=== PATIENT | male | born 1940 | race Caucasian/White ===

== ENCOUNTER → 2024-01-16 15:41 | Outpatient (REF) | payer OTHER, SELFPAY ==
[2024-01-16 17:45] LABS: NT-proBNP 1280 pg/ml
== END ==
LOC: REG 15:41
PROVIDERS: ATTENDING PHYSICIAN Internal Medicine Cardiovascular Disease; FAMILY PHYSICIAN Internal Medicine
DX: I48.21 Permanent atrial fibrillation (principal); R06.09 Other forms of dyspnea
CPT/HCPCS: 36415; 83880

== ENCOUNTER → 2024-02-01 11:54 | Outpatient (REF) | payer OTHER, SELFPAY ==
[2024-02-01 13:43] LABS: Blood Urea Nitrogen 24 mg/dl (9-20); Calcium 9.6 mg/dl (8.4-10.2); Carbon Dioxide 27 mmol/L (22-30); Chloride 102 mmol/L (98-107); Glucose 97 mg/dl (70-99); Potassium 5.3 mmol/L (3.5-5.1); Sodium 138 mmol/L (135-145); eGFR > 60.00
== END ==
LOC: REG 11:54
PROVIDERS: ATTENDING PHYSICIAN Internal Medicine Cardiovascular Disease; FAMILY PHYSICIAN Internal Medicine
DX: I44.0 Atrioventricular block, first degree (principal); I10 Essential (primary) hypertension; I70.0 Atherosclerosis of aorta; E78.00 Pure hypercholesterolemia, unspecified
CPT/HCPCS: 36415; 80048

== ENCOUNTER → 2024-02-13 07:40 | Outpatient (REF) | payer OTHER, SELFPAY | LOC: DHCBC/DCA 07:40 | PROVIDERS: ATTENDING PHYSICIAN Internal Medicine Cardiovascular Disease; FAMILY PHYSICIAN Internal Medicine | DX: I48.21 Permanent atrial fibrillation (principal); R06.09 Other forms of dyspnea; E78.00 Pure hypercholesterolemia, unspecified | CPT/HCPCS: 78452; 93017; A9500; J2785 ==

== ENCOUNTER → 2024-02-27 15:06 | Outpatient (REF) | payer OTHER, SELFPAY | LOC: RCS 15:06 | PROVIDERS: ATTENDING PHYSICIAN Internal Medicine Cardiovascular Disease; FAMILY PHYSICIAN Internal Medicine | DX: I48.21 Permanent atrial fibrillation (principal); R06.09 Other forms of dyspnea; E78.00 Pure hypercholesterolemia, unspecified | CPT/HCPCS: 93306 ==

== ENCOUNTER → 2024-04-11 09:17 | Outpatient (REF) | payer OTHER, SELFPAY ==
[2024-04-11 10:14] LABS: Blood Urea Nitrogen 15 mg/dl (9-20); Calcium 9.5 mg/dl (8.4-10.2); Carbon Dioxide 29 mmol/L (22-30); Chloride 103 mmol/L (98-107); Glucose 105 mg/dl (70-99); Potassium 4.7 mmol/L (3.5-5.1); Sodium 140 mmol/L (135-145); eGFR > 60.00
[2024-04-11 10:22] LABS: NT-proBNP 1420 pg/ml
== END ==
LOC: REG 09:17
PROVIDERS: ATTENDING PHYSICIAN Internal Medicine Cardiovascular Disease; FAMILY PHYSICIAN Internal Medicine
DX: I48.0 Paroxysmal atrial fibrillation (principal)
CPT/HCPCS: 36415; 80048; 83880

== ENCOUNTER → 2024-04-27 13:10 | Outpatient (REF) | payer OTHER, SELFPAY ==
[2024-04-27 14:45] LABS: % Basophils 0.9 % (0-2); % Eosinophils 2.2 % (0-6); % Immature Granulocytes 0.2 % (0-0.5); % Lymphocytes 22.9 % (20.5-51.1); % Neutrophils 60.8 % (42.2-75.2); Absolute Eosinophils 0.1 10^3/uL (0-0.7); Absolute Monocytes 0.6 10^3/uL (0.1-0.6); Absolute Neutrophils 2.8 10^3/uL (1.4-6.5); Hematocrit 38.6 % (39.0-52.0); Mean Corp Hgb Conc. 33.7 g/dL (33.0-37.0); Mean Corpuscular Hgb 30.8 pg (27.0-31.0); Mean Corpuscular Volume 91.5 fL (80.0-94.0); Mean Platelet Volume 9.6 fL (7.4-10.4); Nucleated Red Blood Cells % 0 % (-); Platelet Count 145 10^3/uL (130-400); Red Blood Cell Count 4.22 10^6/uL (4.70-6.10); Red Cell Dist. Width 13.7 % (11.5-14.5); White Blood Cell Count 4.6 10^3/uL (4.8-10.8)
[2024-04-27 15:23] LABS: ALT (SGPT) 22 U/L (0-50); AST (SGOT) 35 U/L (17-59); Albumin 4.5 g/dl (3.5-5.0); Alkaline Phosphatase 71 U/L (38-126); Blood Urea Nitrogen 22 mg/dl (9-20); Calcium 9.7 mg/dl (8.4-10.2); Carbon Dioxide 29 mmol/L (22-30); Chloride 103 mmol/L (98-107); Glucose 92 mg/dl (70-99); Potassium 5.2 mmol/L (3.5-5.1); Sodium 138 mmol/L (135-145); Total Bilirubin 1.3 mg/dl (0.2-1.3); Total Protein 7.4 g/dl (6.3-8.2); eGFR > 60.00
[2024-04-30 14:39] LABS: Lyme Antibody Screen, EIA Negative (Negative)
[2024-05-02 14:50] LABS: Ehrlichia chaffeensis IgG Ab <1:64 (<1:64); Ehrlichia chaffeensis IgM Ab < 1:16 (< 1:16)
== END ==
LOC: REG 13:10
PROVIDERS: ATTENDING PHYSICIAN Internal Medicine; FAMILY PHYSICIAN Internal Medicine
DX: Z11.9 Encounter for screening for infectious and parasitic diseases, unspecified (principal); W57.XXXA Bitten or stung by nonvenomous insect and other nonvenomous arthropods, initial encounter
CPT/HCPCS: 36415; 80053; 85025; 86618; 86666

== ENCOUNTER 2024-05-19 16:51 | Emergency (ER) | payer OTHER, SELFPAY ==
[2024-05-19 16:53] VITALS: BP 120/80
[2024-05-19 18:48] VITALS: BMI 27.6
[2024-05-19 18:52] VITALS: BP 112/77
--- NOTE | 2024-05-19 20:00 | ED.GENMED ---
History of Present Illness
<Ester Kyle PA-C - Last Filed: 05/23/24 08:18>
General
Chief Complaint: Skin Surface Trauma
Source: patient
Exam Limitations: none
Time Seen by Provider: 05/19/24 18:37
Nursing documentation reviewed up to this point in time: agreed with
History of Present Illness
History of Present Illness:
pt is a 83 y/o M
afib on xarelto
here with L sided chest wall pain after fall mechanical this afternoon, tripped up the steps of a house he was looking into buying. he landed on his left leg and has lacerations to the lower leg and also hurt his right 5th finger, and has L sided
rib pain. he was able to get up after being helped up
he did hit his head but denies headache, neck pain
pt was mostly left sided rib pain with moving but does not feel sob
no abdomianl pain
no hematuria
pt has abrasion to left lower leg skin tear and has h/o PVD and poor healign an dis concerned that he will not heal
he has a dressing on his lower leg from a chronic ulceration treated by his want ad receiver just a few days ago
tetanus outdated
Past History
<Ester Kyle PA-C - Last Filed: 05/23/24 08:18>
Past History
ED Past Medical History: Arrthythmia (afib), HTN and Other (BPH, PVD)
ED Past Surgical History: None
Patient has exhibited threatening behavior?: No
Social History
Tobacco: Non-smoker
Employment: Retired
Review of Systems
<Ester Kyle PA-C - Last Filed: 05/23/24 08:18>
Review of Systems
Allergies reviewed?: Yes
All Other Systems: Not applicable
Phy Exam
<Ester Kyle PA-C - Last Filed: 05/23/24 08:18>
Physical Exam
Physical Exam:
GENERAL: Alert , in no apparent distress
HEAD: NC
small jm left druze region, nontender
NECK: no midline tenderness, active ROM intact, no paraspinal muscle tenderness;
EYE: pupils equal and reactive, EOMs intact.
ENT: o/p clr, mmm. no hemotympanum
CARDIAC: Regular rate and rhythm, no edema
LUNGS: Clear breath sounds bilaterally, no acute respiratory distress, no wheezes/rales/rhonchi
left rib tendreness along #6 left midclavicular line
no bruising
normal breathing, no splinting
ABDOMEN: Soft, without focal tenderness, no r/g, no cvat
no LUQ tenderness
NEUROLOGICAL: Alert and oriented, no focal neuro deficits, CN intact, 5/5 strength, sensation intact
SKIN: Warm and dry, superifical skin tears x 2 approx 3 cm and 2 cm to left anterior lower leg
PVD skin changes
dressing to the L lower leg
MUSCULOSKELETAL: mild edema B/L le
normal ROM of legs/hips/knees
painful limitged ROM of the righ t5th finger, some flexion at PIP joint, cannot quite fully extend
otehrwise arms normaal
PSYCH: Normal and appropriate interaction.
Course
<Ester Kyle PA-C - Last Filed: 05/23/24 08:18>
Orders/Labs/Results
Orders:
Orders
05/19/24 17:05
Finger(s)/Thumb 2 View Rt [CR Finger(s)/thumb Min 2 Vw Rt] Urgent
Comment:
Reason For Exam: swelling and pain
Indicate Which Finger:: Thumb
Ribs, Left 3 View W/PA Chest CR [CR Ribs-left 3 Vw W/pa Chest] Urgent
Comment:
Reason For Exam: midsternal and left chest pain after a fall
08/24/24 17:06
EKG [Electrocardiogram (*1)] Urgent
Reason for Study: Chest Pain
05/19/24 17:07
EKG- Treatment ONCE
05/19/24 20:03
CT Cervical Spine W/o Iv Contr Urgent
Comment:
Reason For Exam: fall
CT Chest/abd/pel W Iv Cont Urgent
Comment:
Reason For Exam: fall L sided chest pain
CT Head W/o Iv Contrast Urgent
Comment:
Reason For Exam: fall on xarelto
Cardiac Monitoring- Treatment ONCE
05/19/24 20:04
Acetaminophen [Tylenol] 650 mg PO NOW STA
Tetanus/Diphth/Acelpertussis [Adacel] 0.5 ml IM .ONCE ONE
05/19/24 20:17
Complete Blood Count/With Diff Urgent
Comprehensive Metabolic Panel Urgent
PTT Urgent
Prothrombin Time Urgent
Troponin I Urgent
Abnormal Lab Results
05/19/24
20:17
RBC 4.33 L 10^6/uL
(4.70-6.10)
MCH 31.6 H pg
(27.0-31.0)
Plt Count 121 L 10^3/uL
(130-400)
Absolute Lymphs (auto) 0.9 L 10^3/uL
(1.2-3.4)
Lymphocytes % 17.4 L %
(20.5-51.1)
PT 19.4 H Sec
(11.4-14.6)
APTT 38.2 H Sec
(23.4-35.0)
Total Bilirubin 1.4 H mg/dl
(0.2-1.3)
05/19/24 20:17
05/19/24 20:17
Vital Signs
Initial and Last Documented VS:
Initial Vital Signs
Temp Pulse Resp BP Pulse Ox
98.4 F 72 18 120/80 99
05/19/24 16:53 05/19/24 16:53 05/19/24 16:53 05/19/24 16:53 05/19/24 16:53
Last Documented Vital Signs
Temp Pulse Resp BP Pulse Ox
98.4 F 86 16 111/98 99
05/19/24 16:53 05/19/24 21:54 05/19/24 21:54 05/19/24 21:54 05/19/24 21:54
<Eleanor Howard MD - Last Filed: 05/19/24 20:07>
Orders/Labs/Results
Orders:
Orders
05/19/24 17:05
Finger(s)/Thumb 2 View Rt [CR Finger(s)/thumb Min 2 Vw Rt] Urgent
Comment:
Reason For Exam: swelling and pain
Indicate Which Finger:: Thumb
Ribs, Left 3 View W/PA Chest CR [CR Ribs-left 3 Vw W/pa Chest] Urgent
Comment:
Reason For Exam: midsternal and left chest pain after a fall
05/19/24 17:06
EKG [Electrocardiogram (*1)] Urgent
Reason for Study: Chest Pain
05/19/24 17:07
EKG- Treatment ONCE
05/19/24 20:03
CT Cervical Spine W/o Iv Contr Urgent
Comment:
Reason For Exam: fall
CT Chest/abd/pel W Iv Cont Urgent
Comment:
Reason For Exam: fall L sided chest pain
CT Head W/o Iv Contrast Urgent
Comment:
Reason For Exam: fall on xarelto
Cardiac Monitoring- Treatment ONCE
05/19/24 20:04
Acetaminophen [Tylenol] 650 mg PO NOW STA
Tetanus/Diphth/Acelpertussis [Adacel] 0.5 ml IM .ONCE ONE
05/19/24 20:17
Complete Blood Count/With Diff Urgent
Comprehensive Metabolic Panel Urgent
PTT Urgent
Prothrombin Time Urgent
Troponin I Urgent
Abnormal Lab Results
05/19/24
20:17
RBC 4.33 L 10^6/uL
(4.70-6.10)
MCH 31.6 H pg
(27.0-31.0)
Plt Count 121 L 10^3/uL
(130-400)
Absolute Lymphs (auto) 0.9 L 10^3/uL
(1.2-3.4)
Lymphocytes % 17.4 L %
(20.5-51.1)
PT 19.4 H Sec
(11.4-14.6)
APTT 38.2 H Sec
(23.4-35.0)
Total Bilirubin 1.4 H mg/dl
(0.2-1.3)
05/19/24 20:17
05/19/24 20:17
Vital Signs
Initial and Last Documented VS:
Initial Vital Signs
Temp Pulse Resp BP Pulse Ox
98.4 F 72 18 120/80 99
05/19/24 16:53 05/19/24 16:53 05/19/24 16:53 05/19/24 16:53 05/19/24 16:53
Last Documented Vital Signs
Temp Pulse Resp BP Pulse Ox
98.4 F 86 16 111/98 99
05/19/24 16:53 05/19/24 21:54 05/19/24 21:54 05/19/24 21:54 05/19/24 21:54
[place];Ester Kyle PA-C - Last Filed: 05/23/24 08:18>
MDM/Problems Addressed
Differential Diagnosis Includes:
rib fx, hemothorax, ptx, splenic injury, head injyury, finger fracture, finger sprain
MDM/Problems Addressed:
83 y/o M
anticoagulated
mechanical trip and fall up the steps today
slight head strike, no LOC
mostly L rib pain and right pinky pain and some abrasions
intiially declining CT imaging but with his xarelto and age felkt it necessary to eval with trauma scans
pt seen by ed attending who agreed, pt did ultimately agree
head/neck ct some incidentals, no trauma
initially the rib series xray sohwed possbility of acute 6th and possibly age indermininate 5th rib fx
the CT does not show these - ip spoke with vision radiologist to discuss this who said that the images sent were thicker cuts that could miss subtle rib fx
will treat as if he has fx
incentive spoirometry
wound care performed on loewr leg
splinted left pinky which xray indep reviewed and neg for fx
possibly sprained ligament
f/u ortho
Incidentally the CT scan shows an aortic aneurysm, he does have an ascending aneurysm 5.1 cm and a descending thoracic aortic aneurysm measuring 4 cm. I discussed this with the radiologist as well. Patient has not been aware of these. He has no
symptoms. I discussed this with the ED attending who recommended that I ask the CT surgeon about follow-up which she said can be performed outpatient. Patient was given a copy of this report and understands
<Ester Kyle PA-C - Last Filed: 05/23/24 08:18>
*Critical Care Note
Total Time (30-74mins, 75-104mins- exclusive of procedures): Not Applicable
ED Attending Note
<Ester Kyle PA-C - Last Filed: 05/23/24 08:18>
-
Portions of this chart may have been created with voice recognition software.� Occasional wrong word or��sound alike� substitutions may have occurred due to the inherent limitations of voice recognition software.
<Eleanor Howard MD - Last Filed: 08/24/24 20:07>
ED Attending Note
Patient seen and examined by attending physician: Yes
I performed the substantive portion of visit, reviewed & personally made and approve the management plan that is documented in note by myself or LENORE.: Yes
ED Attending Note:
Patient is a 83-year-old male with history of atrial flutter on Xarelto presenting to the emergency department after a fall. Patient states that he tripped on 1 step. He landed on his chest. He is unsure if he hit his head. He is complaining of
finger pain and chest pain. He denies any numbness tingling. No weakness. He is mostly worried about the chest pain.
GENERAL: no acute distress
HEENT: atraumatic, extraocular muscles intact, no signs of entrapment, dentition intact, no other obvious trauma
NECK: no midline tenderness, normal range of motion, NEXUS criteria negative, no other obvious trauma
BACK: no midline tenderness, no other obvious trauma
CHEST: Left chest wall tender, no flail segment, no subcutaneous emphysema, no other obvious trauma
LUNGS: clear to auscultation bilaterally
CARDIOVASCULAR: regular rate and rhythm
ABDOMEN: soft, non-tender, no masses, no other obvious trauma
PELVIS: stable, no obvious injury
EXTREMITIES: moving all extremities, distal pulses intact, no other obvious trauma, scattered abrasions that are superficial to the lower extremity
NEUROLOGIC: awake, alert x 3, no focal deficits
83-year-old male with history of A-fib on Xarelto presenting to the emergency department after a fall. Exam does show chest wall tenderness and scattered abrasions to his lower extremity that bleeding is controlled. He did have x-rays of his ribs
with did show 2 rib fractures. After discussion with patient I did recommend obtaining CT scan of the head C-spine chest abdomen pelvis given his age and anticoagulation status. Patient is amenable. Will also obtain xrays of finger. dispo pending
per x-rays and CT scan.
Discharge Plan
Departure
Patient Disposition: Home (Routine Discharge)
Patient with high blood pressure during this ER visit?: No
Condition: Fair
Discharge Problem:
Fall, Skin tear, Rib fractures, Finger sprain
Instructions: Wound Care (DC), Finger Sprain (DC), Rib Fracture or Bruised Rib ED
Prescriptions:
No Action
cyanocobalamin (vitamin B-12) 1,000 MCG tablet
1,000 mcg PO DAILY
cholecalciferol (vitamin D3) 1,000 UNITS tablet
1,000 units PO DAILY
Xarelto 20 MG tablet
20 mg PO DAILY
Patient Comments:
02/02/19 ss; pt takes in the AM, not QPM.
potassium gluconate 99 MG tablet
99 mg PO QPM
zinc 10 MG tablet
10 mg PO DAILY
silodosin [Rapaflo] 8 MG capsule
8 mg PO .PM
valsartan 80 mg Tablet
80 mg PO DAILY
amoxicillin 500 mg Tablet
2,000 mg PO PRN PRN (Reason: dental appt)
oxycodone-acetaminophen 5-325 mg Tablet
1 tab PO PRN PRN (Reason: pain)
magnesium 200 mg Tablet
400 mg PO DAILY
Systane (propylene glycol) 0.4-0.3 % Drops
1 drp OPHTHALMIC (EYE) DAILY PRN (Reason: dry eye)
nebivolol 10 mg Tablet
10 mg PO DAILY
Referrals:
Jaun Shipley MD [Active] - Follow up in 1 week (ORTHO)
Benji Merida DO [Family Provider] -
Raghav Cramer MD [Active] - Follow up in 5-7 days (CT surgery)
[facility] [[facility]] - Follow up in 1 week
Activity Restrictions/Additional Instructions:
YOU MAY HAVE 2 RIB FRACTURES
THEY WERE NOT WELL VISUALIZED ON CT SCAN
NO DISPLACED RIB FRACTURES OR HEAD/NECK INJURIES
USE THE INCENTIVE SPIROMETER TO TAKE DEEP BREATHS TO AVOID PNEUMONIA EERY 2 HOURS WHILE AWAKE
TAKE TYLENOL NEEDED FOR PAIN
ICE OFF AND ON
FOLLOW UP WITH ORTHOPEDICS FOR YOUR FINGER, THERE WAS NO FRACTURE BUT YOU MAY HAVE A FINGER LIGMAENT SPRAIN
FOLLOW UP WITH THE HAND DOCTOR
RETURN FO [facility]ANY CONCERNS
CALL THE [facility] FOR HELP WITH YOUR WOUNDS
Interventions
Interventions:
*Risk Screen - Suicide Last Done: 05/19/24 18:52
*General Assessment Last Done: 05/19/24 18:49
*Neglect/Abuse Screening Last Done: 05/19/24 18:52
ED- Fall Risk Assessment Last Done: 05/19/24 22:04
*ED COVID-19 Vaccine History Last Done: 05/19/24 18:49
*Nursing Disposition Last Done: 05/19/24 22:04
ED-Skin Assessment Last Done: 05/19/24 18:49
Discharge Date and Time
Discharge Date/Time: 05/19/24 22:05
Print Language: NIUEAN
[2024-05-19] MEDS: ADACEL 0.5 ML IM (20:22)
[2024-05-19 20:24] LABS: % Basophils 0.6 % (0-2); % Eosinophils 0.6 % (0-6); % Immature Granulocytes 0.2 % (0-0.5); % Lymphocytes 17.4 % (20.5-51.1); % Monocytes 9.3 % (1.7-9.3); % Neutrophils 71.9 % (42.2-75.2); Absolute Lymphocytes 0.9 10^3/uL (1.2-3.4); Absolute Monocytes 0.5 10^3/uL (0.1-0.6); Absolute Neutrophils 3.9 10^3/uL (1.4-6.5); Hemoglobin 13.7 g/dL (13.0-18.0); Mean Corp Hgb Conc. 35.1 g/dL (33.0-37.0); Mean Corpuscular Hgb 31.6 pg (27.0-31.0); Mean Corpuscular Volume 90.1 fL (80.0-94.0); Mean Platelet Volume 8.7 fL (7.4-10.4); Nucleated Red Blood Cells % 0 % (-); Platelet Count 121 10^3/uL (130-400); Red Blood Cell Count 4.33 10^6/uL (4.70-6.10); Red Cell Dist. Width 13.9 % (11.5-14.5); White Blood Cell Count 5.4 10^3/uL (4.8-10.8)
[2024-05-19 20:35] LABS: INR 1.65; PT 19.4 Sec (11.4-14.6)
[2024-05-19 20:36] LABS: APTT 38.2 Sec (23.4-35.0)
[2024-05-19 20:45] LABS: ALT (SGPT) 27 U/L (0-50); AST (SGOT) 43 U/L (17-59); Albumin 4.7 g/dl (3.5-5.0); Alkaline Phosphatase 72 U/L (38-126); Blood Urea Nitrogen 17 mg/dl (9-20); Calcium 9.6 mg/dl (8.4-10.2); Carbon Dioxide 30 mmol/L (22-30); Chloride 102 mmol/L (98-107); Estimated Creatinine Clearance 71 ml/min; Glucose 94 mg/dl (70-99); Sodium 142 mmol/L (135-145); Total Bilirubin 1.4 mg/dl (0.2-1.3); eGFR > 60.00
[2024-05-19 20:50] LABS: Troponin I < 0.012 ng/ml
[2024-05-19 21:54] VITALS: BP 111/98
== END 2024-05-19 22:05 | disposition home or self-care (01) ==
LOC: EMR 16:51
PROVIDERS: Physician Assistant; EMERGENCY PHYSICIAN Student in an Organized Health Care Education/Training Program; FAMILY PHYSICIAN Internal Medicine
DX: S22.41XA Multiple fractures of ribs, right side, initial encounter for closed fracture (principal); S63.616A Unspecified sprain of right little finger, initial encounter; S81.812A Laceration without foreign body, left lower leg, initial encounter; W17.89XA Other fall from one level to another, initial encounter; Y93.89 Activity, other specified; Y92.89 Other specified places as the place of occurrence of the external cause; I10 Essential (primary) hypertension; I48.91 Unspecified atrial fibrillation; N40.0 Benign prostatic hyperplasia without lower urinary tract symptoms; I73.9 Peripheral vascular disease, unspecified; I48.92 Unspecified atrial flutter; I71.23 Aneurysm of the descending thoracic aorta, without rupture; Z79.01 Long term (current) use of anticoagulants; Z96.653 Presence of artificial knee joint, bilateral; Z85.89 Personal history of malignant neoplasm of other organs and systems; Z87.891 Personal history of nicotine dependence; Z88.8 Allergy status to other drugs, medicaments and biological substances
CPT/HCPCS: 99285; 70450; 71101; 71260; 72125; 73140; 74177; 80053; 84484; 85025; 85610; 85730; 90715; 93005; Q9967

== ENCOUNTER → 2024-06-25 08:33 | Outpatient (REF) | payer OTHER, SELFPAY ==
[2024-06-25 10:25] LABS: Blood Urea Nitrogen 15 mg/dl (9-20); Calcium 9.6 mg/dl (8.4-10.2); Carbon Dioxide 28 mmol/L (22-30); Chloride 102 mmol/L (98-107); Glucose 99 mg/dl (70-99); Potassium 4.3 mmol/L (3.5-5.1); Sodium 142 mmol/L (135-145); eGFR > 60.00
== END ==
LOC: REG 08:33
PROVIDERS: ATTENDING PHYSICIAN Family Medicine; FAMILY PHYSICIAN Internal Medicine
DX: I10 Essential (primary) hypertension (principal)
CPT/HCPCS: 36415; 80048

== ENCOUNTER → 2024-07-11 10:39 | Outpatient (REF) | payer OTHER, SELFPAY ==
[2024-07-11 11:56] LABS: Blood Urea Nitrogen 24 mg/dl (9-20); Calcium 9.5 mg/dl (8.4-10.2); Carbon Dioxide 31 mmol/L (22-30); Chloride 100 mmol/L (98-107); Glucose 100 mg/dl (70-99); HDL Cholesterol 69 mg/dl; LDL Cholesterol, Calculated 68 mg/dl; Potassium 4.9 mmol/L (3.5-5.1); Sodium 143 mmol/L (135-145); Total Cholesterol 150 mg/dl (50-199); Triglyceride 67 mg/dl (10-149); Very Low Density Lipoprotein 13 mg/dl (0-30); eGFR > 60.00
== END ==
LOC: REG 10:39
PROVIDERS: ATTENDING PHYSICIAN Internal Medicine Cardiovascular Disease; FAMILY PHYSICIAN Internal Medicine
DX: E78.00 Pure hypercholesterolemia, unspecified (principal)
CPT/HCPCS: 36415; 80048; 80061

== ENCOUNTER → 2025-01-21 09:09 | Outpatient (REF) | payer OTHER, SELFPAY ==
[2025-01-21 10:57] LABS: ALT (SGPT) 27 U/L (0-50); AST (SGOT) 39 U/L (17-59); Albumin 4.7 g/dl (3.5-5.0); Alkaline Phosphatase 55 U/L (38-126); Blood Urea Nitrogen 19 mg/dl (9-20); Calcium 9.4 mg/dl (8.4-10.2); Carbon Dioxide 28 mmol/L (22-30); Chloride 103 mmol/L (98-107); Glucose 110 mg/dl (70-99); HDL Cholesterol 77 mg/dl; LDL Cholesterol, Calculated 66 mg/dl; Potassium 5.6 mmol/L (3.5-5.1); Sodium 140 mmol/L (135-145); Total Bilirubin 1.4 mg/dl (0.2-1.3); Total Cholesterol 157 mg/dl (50-199); Total Protein 7.9 g/dl (6.3-8.2); Triglyceride 70 mg/dl (10-149); Very Low Density Lipoprotein 14 mg/dl (0-30); eGFR > 60.00
== END ==
LOC: REG 09:09
PROVIDERS: ATTENDING PHYSICIAN Internal Medicine Cardiovascular Disease; FAMILY PHYSICIAN Internal Medicine
DX: I10 Essential (primary) hypertension (principal); E78.00 Pure hypercholesterolemia, unspecified
CPT/HCPCS: 36415; 80053; 80061

== ENCOUNTER → 2025-01-28 07:39 | Outpatient (REF) | payer OTHER, SELFPAY | LOC: RAD 07:39 | PROVIDERS: ATTENDING PHYSICIAN Internal Medicine Cardiovascular Disease; FAMILY PHYSICIAN Internal Medicine | DX: I10 Essential (primary) hypertension (principal); R06.09 Other forms of dyspnea; I77.819 Aortic ectasia, unspecified site | CPT/HCPCS: 71275; Q9967 ==

== ENCOUNTER → 2025-02-15 10:44 | Outpatient (REF) | payer OTHER, SELFPAY ==
[2025-02-15 11:49] LABS: NT-proBNP 1200 pg/ml
[2025-02-15 12:27] LABS: Blood Urea Nitrogen 19 mg/dl (9-20); Calcium 9.3 mg/dl (8.4-10.2); Carbon Dioxide 28 mmol/L (22-30); Chloride 107 mmol/L (98-107); Glucose 105 mg/dl (70-99); Magnesium 2.2 mg/dl (1.6-2.3); Potassium 4.9 mmol/L (3.5-5.1); Sodium 142 mmol/L (135-145); eGFR > 60.00
== END ==
LOC: REG 10:44
PROVIDERS: ATTENDING PHYSICIAN Internal Medicine Cardiovascular Disease
DX: I10 Essential (primary) hypertension (principal); I48.0 Paroxysmal atrial fibrillation; R06.09 Other forms of dyspnea
CPT/HCPCS: 36415; 80048; 83735; 83880